=== PATIENT | female | born 1970 | race Caucasian/White ===

== ENCOUNTER 2017-09-12 18:42 | Emergency (ER) | payer MEDICAID ==
[~2017-09-12] VITALS: Ht 170.2 cm; Wt 69.6 kg
[~2017-09-12 18:42] MED LIST: CLON2TAB; ESCI20TA10
[2017-09-12 18:49] VITALS: BP 122/86
[2017-09-12 19:31] LABS: HEMATOCRIT 45.8 % (34.6-47.8); HEMOGLOBIN 15.5 g/dL (11.7-16.4); WHITE BLOOD COUNT 11.1 x10^3/uL (3.4-10)
[2017-09-12 19:38] LABS: ASPARTATE AMINO TRANSFERASE 16 U/L (15-37); BLOOD UREA NITROGEN 9 mg/dL (7-18)
[2017-09-12 19:50] LABS: PATH.CAST-FLAG NOT PRESENT; SPERM-FLAG NOT PRESENT; SRC-FLAG NOT PRESENT; XTAL-FLAG NOT PRESENT; YLC-FLAG NOT PRESENT
== END 2017-09-12 21:25 | disposition home or self-care (01) ==
LOC: ED 20:49
DX: N30.00 Acute cystitis without hematuria (principal); F32.9 Major depressive disorder, single episode, unspecified; F43.10 Post-traumatic stress disorder, unspecified; G89.29 Other chronic pain; M54.9 Dorsalgia, unspecified; Z90.49 Acquired absence of other specified parts of digestive tract
CPT/HCPCS: 36415; 80053; 81001; 85025; 87086; 99284

== ENCOUNTER 2021-05-30 22:49 | Emergency (ER) | payer MEDICAID ==
[~2021-05-30] VITALS: Ht 170.2 cm; Wt 68.2 kg
[2021-05-30] MEDS ORDERED: KETOROLAC 30 MG/1 ML ONE (23:51)
--- NOTE | 2021-05-30 23:57 | NUR ---
pt c/o 06/29 pain. medicated per order on emar. pt reports nausea. provider made aware.
[2021-05-30] MEDS ORDERED: ONDANSETRON ODT 4 MG ONE (23:59)
[2021-05-31] MEDS ORDERED: KETOROLAC 30 MG/1 ML IM ONE
[2021-05-31] MEDS ORDERED: ONDANSETRON ODT 4 MG PO ONE
[2021-05-31 00:54] VITALS: BP 116/84
== END 2021-05-31 00:56 | disposition home or self-care (01) ==
LOC: ED 23:50
DX: M25.511 Pain in right shoulder (principal); M62.838 Other muscle spasm
CPT/HCPCS: 73030; 96372; 99283; J1885; Q0162

== ENCOUNTER 2021-07-16 18:32 | Emergency (ER) | payer MEDICAID ==
[~2021-07-16] VITALS: Ht 170.2 cm; Wt 69.3 kg
--- NOTE | 2021-07-16 19:59 | NUR ---
Called for pt and searched lobby calling pt's name. No answer.
--- NOTE | 2021-07-16 20:06 | NUR ---
Second call for pt and search of lobby with no answer.
--- NOTE | 2021-07-16 20:12 | NUR ---
Pt found on third call in lobby. Ambulatory to room with c/o L arm soreness radiating into L armpit and all over joint/body aches since getting second Covid vaccine 3 days ago.
--- NOTE | 2021-07-16 20:30 | NUR ---
PA at bedside for exam.
[2021-07-16 21:12] VITALS: BP 133/75
== END 2021-07-16 21:13 | disposition home or self-care (01) ==
LOC: ED 21:00
DX: M79.10 Myalgia, unspecified site (principal); J06.9 Acute upper respiratory infection, unspecified
CPT/HCPCS: 99282